=== PATIENT | female | born 1980 | race Caucasian/White ===

== ENCOUNTER 2016-12-30 20:24 | Inpatient (IN) | payer MEDICAID ==
[~2016-12-30] VITALS: Ht 160 cm; Wt 78.9 kg
[2016-12-30] MEDS ORDERED: PNV1TABL76 MT (21:18)
[2016-12-30] MEDS ORDERED: CARBOPROST TROMETHAMINE 250 MCG/ML AMPUL IM PRN (21:30)
[2016-12-30] MEDS ORDERED: METHYLERGONOVINE MALEATE 0.2 MG/ML IM PRN (21:30)
[2016-12-30] MEDS ORDERED: DEXT 5%/LR + PITOCIN 20UNITS/L 1,000 ML IV SCH (21:30)
[2016-12-30] MEDS: LACTATED RINGERS 1,000 ML IV SCH ×2 (21:50→23:07)
[2016-12-30 22:30] LABS: CLARITY URINE CLEAR (CLEAR); COLOR URINE YELLOW (YELLOW); GLUCOSE URINE NEGATIVE (NEGATIVE); KETONES URINE NEGATIVE (NEGATIVE); LEUKOCYTE ESTERASE URINE NEGATIVE (NEGATIVE); NITRITE URINE NEGATIVE (NEGATIVE); OCCULT BLOOD URINE 1+ (NEGATIVE); PH URINE 6.5 (4.5-8.0); PROTEIN URINE NEGATIVE (NEGATIVE); SPECIFIC GRAVITY URINE 1.007 (1.005-1.030); UROBILINOGEN URINE 0.2 E.U./dL (0.2-1.0)
[2016-12-30] MEDS ORDERED: INFLUENZA VIRUS VACCINE 0.5ML SYR IM ONE (22:30)
[2016-12-30 22:38] LABS: BASOPHILS % 0.6 % (0.0-2.0); EOSINOPHILS % 9.5 % (0.0-5.0); HEMATOCRIT. 40.3 % (36.0-48.0); HEMOGLOBIN. 13.6 g/dL (12.0-16.0); LYMPHOCYTES % 18.3 % (20.0-50.0); MEAN CORPUSCULAR HEMOGLOBIN 29.5 pg (28.0-32.0); MEAN CORPUSCULAR VOLUME 87.6 fL (81.0-99.0); MEAN PLATELET VOLUME 7.5 fl (7.4-10.4); MONOCYTES % 6.7 % (2.0-8.0); NEUTROPHILS % 64.9 % (40.0-76.0); PLATELET 394 x1000/uL (130-400); RED CELL DISTRIBUTION WIDTH 15.1 % (11.6-14.6)
[2016-12-30 22:39] LABS: PARTIAL THROMBOPLASTIN TIME 27.8 sec (23.4-31.0)
[2016-12-30 22:48] LABS: *AMPHETAMINES SCREEN URINE NEGATIVE (NEGATIVE); *BARBITURATES SCREEN URINE NEGATIVE (NEGATIVE); *BENZODIAZEPINES SCREEN URINE NEGATIVE (NEGATIVE); *COCAINE SCREEN URINE NEGATIVE (NEGATIVE); CANNABINOID URINE SCREEN NEGATIVE (NEGATIVE); METHADONE URINE SCREEN NEGATIVE (NEGATIVE); OPIATES URINE SCREEN NEGATIVE (NEGATIVE); PHENCYCLIDINE URINE SCREEN NEGATIVE (NEGATIVE)
[2016-12-30 23:24] LABS: HEPATITIS B SURFACE ANTIGEN NEGATIVE; RUBELLA IGG 50.4 IU/mL (4.99-10)
[2016-12-30] MEDS ORDERED: SODIUM CHLORIDE 0.9% 10ML VIAL ONE (23:25)
[2016-12-30] MEDS ORDERED: PHENYLEPHRINE HCL 10 MG/ML 1ML (IV VIAL) IV ONE (23:25)
[2016-12-30] MEDS ORDERED: MORPHINE SULFATE/PF 1MG/ML 10ML AMP ONE (23:25)
[2016-12-30] MEDS ORDERED: DEXAMETHASONE 4MG/ML 1ML VIAL ONE (23:25)
[2016-12-30] MEDS ORDERED: CEFAZOLIN SODIUM 1000MG/VIAL ONE (23:25)
[2016-12-30] MEDS ORDERED: MIDAZOLAM HCL 2 MG/2 ML VIAL ONE (23:25)
[2016-12-30] MEDS ORDERED: OXYTOCIN 10 UNITS/ML 1ML ONE (23:25)
[2016-12-30] MEDS ORDERED: ONDANSETRON HCL 4MG/2ML VIAL ONE (23:25)
[2016-12-30] MEDS ORDERED: EPHEDRINE SULFATE 50MG/ML VIAL ONE (23:25)
[2016-12-31] MEDS ORDERED: DEXT 5%/LR + PITOCIN 20UNITS/L 1,000 ML IV SCH (00:41)
[2016-12-31] MEDS ORDERED: BISACODYL 10MG SUPP PR PRN (00:45)
[2016-12-31] MEDS ORDERED: RHO(D) IMMUNE GLOBULIN 300 MCG/SYR IM PRN (00:45)
[2016-12-31] MEDS ORDERED: HYDROMORPHONE HCL/PF 2MG/ML CPJ IM PRN (00:45)
[2016-12-31] MEDS ORDERED: IBUPROFEN 400MG TABLET PO PRN (00:45)
[2016-12-31] MEDS ORDERED: ONDANSETRON HCL 4MG/2ML VIAL IV PRN (01:00)
[2016-12-31] MEDS ORDERED: MEPERIDINE HCL/PF 25MG/ML CPJ IV PRN (01:00)
[2016-12-31] MEDS ORDERED: NALOXONE HCL 0.4 MG/ML 1ML VIAL IV PRN (01:00)
[2016-12-31] MEDS ORDERED: DIPHENHYDRAMINE 50MG/ML VIAL IV PRN (01:00)
[2016-12-31 04:15] VITALS: BP 116/57
[2016-12-31 04:45] VITALS: BP 100/56
[2016-12-31 05:35] VITALS: BP 113/64
[2016-12-31] MEDS: KETOROLAC 30MG/ML VIAL IV SCH ×2 (06:19→15:33)
[2016-12-31 08:00] VITALS: BP 101/53
[2016-12-31 12:36] LABS: BASOPHILS % 0.1 % (0.0-2.0); HEMATOCRIT. 35.7 % (36.0-48.0); HEMOGLOBIN. 11.7 g/dL (12.0-16.0); MEAN CORPUSCULAR HEMOGLOBIN 28.8 pg (28.0-32.0); MEAN CORPUSCULAR VOLUME 87.7 fL (81.0-99.0); MEAN PLATELET VOLUME 7.4 fl (7.4-10.4); MONOCYTES % 7.1 % (2.0-8.0); NEUTROPHILS % 84.8 % (40.0-76.0); PLATELET 370 x1000/uL (130-400); RED BLOOD CELL COUNT 4.07 mill/uL (4.2-5.4); RED CELL DISTRIBUTION WIDTH 15.5 % (11.6-14.6)
[2016-12-31 17:01] VITALS: BP 98/58
[2016-12-31 20:00] VITALS: BP 98/58
[2017-01-01 04:00] VITALS: BP 100/60
[2017-01-01 08:00] VITALS: BP 97/54
[2017-01-01] MEDS: IBUPROFEN 800MG TABLET PO PRN ×2 (09:00→20:18)
[2017-01-01] MEDS: ACETAMINOPHEN WITH CODEINE 300/30MG TABLET PO PRN ×2 (09:01→20:19)
[2017-01-01 16:14] VITALS: BP 113/68
[2017-01-01 19:35] VITALS: BP 125/74
[2017-01-02 03:50] VITALS: BP 107/53
[2017-01-02] MEDS: IBUPROFEN 800MG TABLET PO PRN ×2 (04:04→12:46)
[2017-01-02 08:42] VITALS: BP 107/68
[2017-01-02] MEDS ORDERED: TETANUS AND DIPHTHERIA TOX/PF 0.5ML SYR (ADULT) IM ONE (11:15)
[2017-01-02] MEDS ORDERED: TETANUS, DIPHTHERIA, PERTUSSIS VAC/PF 0.5ML (>7YR OLD) IM ONE (11:15)
[2017-01-02] MEDS ORDERED: INFLUENZA VIRUS VACCINE 0.5ML SYR IM ONE (11:15)
[2017-01-02 12:46] VITALS: BP 107/68
== END 2017-01-02 15:15 | disposition home or self-care (01) | DRG 540 ==
LOC: L&D 20:24 → OBSVTOIN 20:24 → 7EST PP/OB 12-31 04:00
PROVIDERS: ADMIT Obstetrics & Gynecology; ATTEND Obstetrics & Gynecology
PROC: 10D00Z1 Extraction of Products of Conception, Low, Open Approach (ICD-10-PCS; principal; 2016-12-31)
DX: O34.211 Maternal care for low transverse scar from previous cesarean delivery (principal); O69.81X0 Labor and delivery complicated by cord around neck, without compression, not applicable or unspecified; Z37.0 Single live birth; Z3A.38 38 weeks gestation of pregnancy; Q90.9 Down syndrome, unspecified
CPT/HCPCS: 36415; 80305; 81001; 85025; 85610; 85730; 86592; 86703; 86762; 86850; 86900; 87340; 88307; 90686; 90714; 90715; 99281; A4216; G0378; J0171; J0690; J1100; J1200; J1885; J2250; J2274; J2370; J2405; J2590; J7040; J7042; J7120; A4315